=== PATIENT | male | born 1975 | race Caucasian/White ===

== ENCOUNTER 2018-11-01 07:16 | Day surgery (SDC) | payer OTHER ==
[2018-11-01] MEDS ORDERED: PROPOFOL 500 MG/50 ML EMU IV ONE (07:55)
[2018-11-01] MEDS ORDERED: FENTANYL 100MCG/2ML SOL ONE (07:55)
[2018-11-01] MEDS ORDERED: LIDOCAINE HCL 1% MPF 30 SOL ONE (07:55)
[2018-11-01] MEDS: BUPIVACAINE HCL 0.5% MPF 10 ML SOL ONE ×3 (09:33→09:42)
[2018-11-01 10:23] VITALS: RESP 16
[2018-11-01 10:48] VITALS: BP 113/77; PULSE 56; TEMP 97; O2SAT 98
== END 2018-11-01 11:07 | disposition home or self-care (01) | DRG 607 ==
LOC: SURG 07:16
PROVIDERS: ATTEND Surgery
DX: D17.22 Benign lipomatous neoplasm of skin and subcutaneous tissue of left arm (principal); D17.1 Benign lipomatous neoplasm of skin and subcutaneous tissue of trunk
CPT/HCPCS: 99001; G0168; J3010; J2001; J2704